=== PATIENT | male | born 1940 | race Caucasian/White ===

== ENCOUNTER → 2023-06-28 12:59 | Outpatient (REF) | payer MEDICARE, OTHER, SELFPAY | LOC: RAD 12:59 | PROVIDERS: ATTENDING PHYSICIAN Surgery Vascular Surgery; FAMILY PHYSICIAN Internal Medicine; REFERRING PHYSICIAN Anesthesiology Pain Medicine | DX: I77.0 Arteriovenous fistula, acquired (principal) | CPT/HCPCS: 93922 ==